=== PATIENT | male | born 1950 | race Caucasian/White ===

== ENCOUNTER 2018-06-15 06:51 | Observation (INO) | payer OTHER ==
[~2018-06-15] VITALS: Ht 180.3 cm; Wt 85.3 kg
[2018-06-15 07:28] LABS: HEMATOCRIT 48.8 % (42.0-52.0); HEMOGLOBIN 16.4 gm/dL (14.0-18.0); MCH 30.7 pg (26.0-34.0); MCHC 33.7 g/dL (28.0-37.0); MCV 91.3 fL (80.0-100.0); RBC 5.34 mil/uL (4.50-6.00); RDW 12.9 % (10.5-14.5); WBC 12.8 thou/uL (4.0-11.0)
[2018-06-15 07:34] LABS: CALCIUM 9.4 mg/dL (8.5-10.1); CREATININE 1.1 mg/dL (0.7-1.3); POTASSIUM 4.3 mmol/L (3.5-5.1)
[2018-06-15 07:42] VITALS: BP 173/78
[2018-06-15] MEDS ORDERED: ASPIR 8181 MG PO (08:00)
[2018-06-15] MEDS ORDERED: LIVALO4 MG PO (08:01)
--- NOTE | 2018-06-15 08:47 | EKG ---
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 : 1950 Requested By: El Escobar Order Number: [id number] MD: You Baxtre Measurements Intervals [place] Rate: 63 P: 54 RI: 187 QRS: -43 QRSD: 87 T: 33 QT: 421 QTc: 431 Interpretive Statements Sinus rhythm Left axis deviation No previous ECG available for comparison Electronically Signed On 06-15-2018 8:47:27 BOILERMAKER by You Baxter [email or web address] ��������������������������������������������� <ELECTRONICALLY SIGNED> ���������������������������������������� By: You Baxter MD, [facility] ��������������������������������������������� 06/15/18 0847 0718 7 You Baxter MD, FACC /EPI
[2018-06-15 10:50] VITALS: BP 143/78
[2018-06-15 11:25] VITALS: BP 138/74
--- NOTE | 2018-06-15 13:48 | NUR ---
RECIEVE REPORT FORM KARIE PALMER AT 1340.
--- NOTE | 2018-06-15 15:06 | NUR ---
ASSUMED CARE OF PT AT 1045 POST CATH. PT WAS A&OX4, BEDREST UNTIL 1330. PT BRADYCARDIC IN 50'S AND WAS ASYMPTOMATIC. RIGHT GROIN ACCESS WITH MYNX CLOSURE WAS C/D/I. PT HAS SPOUSE IN ROOM. NO HEMATOMA, NO BLEEDING AND CIRCULATION INTACT. AT 11:30 TRANSFERRED CARE TO ONCOMING NURSE MENDEZ.
[2018-06-15 15:17] VITALS: BP 125/66
[2018-06-15 19:27] VITALS: BP 157/85
[2018-06-16 00:11] VITALS: BP 141/79
--- NOTE | 2018-06-16 04:49 | NUR ---
ASSUMED PT CARE AT 1900 WITH BEDSIDE REPORT TAKEN. PT IS ALERT AND ORIENTED WITH NO SIGN OF DISTRESS NOTED IN PT. 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 PT IS STABLOE THROUGH OUT THE NIGHT.
[2018-06-16 05:11] LABS: HEMATOCRIT 44.6 % (42.0-52.0); HEMOGLOBIN 15.2 gm/dL (14.0-18.0); MCH 30.9 pg (26.0-34.0); MCV 90.9 fL (80.0-100.0); RBC 4.91 mil/uL (4.50-6.00); RDW 12.9 % (10.5-14.5); WBC 11.5 thou/uL (4.0-11.0)
[2018-06-16 05:19] VITALS: BP 145/80
[2018-06-16 05:27] LABS: ANION GAP 8 mmol/L (7-16); BUN 19 mg/dL (7-18); CHLORIDE 104 mmol/L (98-107); CO2 28 mmol/L (21-32); CREATININE 1.1 mg/dL (0.7-1.3); GLUCOSE 102 mg/dL (74-106); POTASSIUM 4.4 mmol/L (3.5-5.1); SODIUM 140 mmol/L (136-145); TROPONIN-I <0.06 ng/mL (<0.06)
[2018-06-16 07:10] VITALS: BP 139/76
[2018-06-16] MEDS ORDERED: ATORVASTATIN CA40 MG PO (07:56)
[2018-06-16] MEDS ORDERED: EFFIENT10 MG PO (07:56)
--- NOTE | 2018-06-16 08:42 | EKG ---
[place] [address] [employer] [facility] [place] [address] ELECTROCARDIOGRAM REPORT Name: TIMOTHY CONN Room #: 206-P [facility] M.R.#: [id number] ������������������ Admission: 06/15/18 ������������������ Attend Phys: El Escobar MD, Discharge: ������������������ Date of : 50 Report #: [id number] ����������������������������������������������������������������� [id number] THIS REPORT FOR: //name// [facility] Test Date: 2018-06-16 Test Time: 07:15:07 Pat Name: TIMOTHY CONN Department: Room: 206 P Gender: M Confidential Secretary: ALISON : 1950 Requested By: Cayla Duron Order Number: [id number] MD: You Baxter Measurements Intervals [place] Rate: 51 P: 49 WV: 196 QRS: -35 QRSD: 84 T: 37 QT: 449 QTc: 414 Interpretive Statements Sinus rhythm Left axis deviation Compared to ECG 06/15/2018 07:18:00 No significant changes Electronically Signed On 06-16-2018 8:42:26 MICROGRAPHICS SERVICES SUPERVISOR by You Baxter [email or web address] ��������������������������������������������� <ELECTRONICALLY SIGNED> ���������������������������������������� By: You Baxter MD, [facility] ��������������������������������������������� 06/16/18 0842 4 4 You Baxter MD, [facility] /EPI
[2018-06-16 09:16] VITALS: BP 139/76
--- NOTE | 2018-06-16 09:38 | NUR ---
PT CARE ASSUMED APPROX 0700. PT ALERT AND ORIENTED X4. DENIES PAIN AND SOA. VSS. RIGHT GROIN POST CATH SITE C/D/I. PT TO DISCHARGE AT THIS TIME. PAPERWORK REVIEWED WITH PT AND SPOUSE. BOTH DENY QUESTIONS OR CONCERNS REGARDING DISCHARGE MEDS, F/U APPTS, ACTIVITY RESTRICTIONS, POST CATH SITE CARE, DIET AND GENERAL POST HOSPITAL CARES. IV OUT, TELE BOX OFF. HOSPITAL STAFF TO ESCORT PT ZABRINA FLOOD.
--- NOTE | 2018-06-16 13:08 | CATHLAB ---
[facility] [place] [address] [place] [address] INVASIVE PROCEDURE REPORT Name: TIMOTHY OCNN Room #: 206-P [facility] M.R.#: [id number] ������������� Admission: 06/15/18 ������������� Attend Phys: El Escobar, Discharge: ��� 06/16/18 ������������� ��� Date of : 50 Date of Service: 06/16/18 1308 �� Report #: [id number] �������� ��������������������������������������������[id number] THIS REPORT FOR: //name// APPROVED REPORT Study performed: 06/15/2018 07:16:20 Patient Details Patient Status: Out-Patient Room #: The patient is a 67 year-old male Event Personnel El Escobar Nitro Man, Linda Phillips RN RN, Viola Garcia RN RN, Puja Rodriguez RTR, NICHOLAS Dorman, Sam Anderson Monitor, Jenn Armendariz RT(R)() Monitor Procedures Performed Left Heart Cath w/or w/o Coronaries [id number] [facility] Aortogram Abdominal Peripheral Angio 999234 LES Place w/wo Plasty Single RCA 312836 Indication Chest pain Procedure Narrative The Right Groin^ was infiltrated with 1% Lidocaine subcutaneous anesthesia. A PINNACLE 6FR Sheath #[id number] sheath was inserted into the RFA^. Coronary angiography was performed using coronary diagnostic catheters. The right coronary system was accessed and visualized with a JR4 catheter. The left coronary system was accessed and visualized with a JL4 catheter. The left ventricle was accessed and visualized with a PIGTAIL catheter. Left ventriculogram was performed in 30 degree projection. An aortogram of the abdominal aorta was performed. Closure device was deployed with a 6 Fr MYNXGRIP 6/7F #[id number]. The patient tolerated the procedure well and there were no complications associated with the procedure. There was no hematoma. Intraoperative Conscious Sedation Sedation start time: 8.24 Case end Time: 9.29 Fentanyl 25 mcg Versed 1.5 mg Fluoro Time: 9.19 minutes Dose: DAP 05067 cGycm2 1487 mGy [facility] [address] [place] [address] INVASIVE PROCEDURE REPORT Name: TIMOTHY CONN Room #: 206-P [facility] M.R.#: [id number] ������������� Admission: 06/15/18 ������������� Attend Phys: El Escobar, Discharge: ��� 06/16/18 ������������� ��� Date of : 50 Date of Service: 06/16/18 1308 �� Report #: [id number] �������� ��������������������������������������������[id number] Hemodynamics The aortic pressure is 154/72 mmHg with a mean of 87 mmHg. The left ventricular pressure is 175/5 mmHg with a mean of mmHg. The left ventricular end diastolic pressure is 23 mmHg. PCI Technique Lesion Percutaneous coronary intervention was performed on the mid right coronary artery. A VISTA 6FR JR 4 #[id number] Guide Catheter was used to engage the ostium. A Luge Wire .014 x 182CM #[id number] Interventional Guidewire was used to cross the lesion. BALLOON DILATION A Balloon catheter Sprinter OTW 2.5 x 12 #[id number] was inserted and inflated up to 8.00atm for 19seconds. Additional Inflation: 12.00atm for 13seconds. STENT DEPLOYMENT A drug-eluting stent RESOLUTE KO OTW 3.0 X 22 #[id number] was inserted and inflated up to 16.00atm for 27seconds. PCI Technique Lesion 2 Percutaneous Coronary Intervention was performed on the mistal right coronary artery. A VISTA 6FR JR 4 #[id number] Guide Catheter was used to engage the ostium. A Luge Wire .014 x 182CM #[id number] Interventional Guidewire was used to cross the lesion. Stent Deployment A drug-eluting stent RESOLUTE KO OTW 2.5 X 8 #[id number] was inserted and inflated up to 14.00atm for 14seconds. Conclusion #1 successful PTCA stent of the proximal RCA tandem lesions with the most proximal subtotaled placement of a 30 by 22 resolute Andrew drug-eluting stent postdilated 3.3 mm DEBI grade 3 flow #2 successful PTCA stent of a distal proximal to the bifurcation of the dominant right 90% lesion to 0% with placement of a 2.5 x 8 Ko drug-eluting stent postdilated 2.6 mm #3 left main large free of disease giving rise to LAD and circumflex #4 LAD extends around the apex with mild mid vessel lesion of 40-50% otherwise well-preserved #5 nondominant circumflex with mild disease #6 normal left jugular size and systolic function EF 60% #7 abdominal aorta performed due to iliac tortuosity no occlusive disease no aneurysm. Renal arteries are patent [facility] [address] [place] [address] INVASIVE PROCEDURE REPORT Name: TIMOTHY CONN Room #: 206-P [facility] M.R.#: [id number] ������������� Admission: 06/15/18 ������������� Attend Phys: El Escobar, Discharge: ��� 06/16/18 ������������� ��� Date of : 50 Date of Service: 06/16/18 1308 �� Report #: [id number] �������� ��������������������������������������������[id number] Recommendations and plan: Continue aggressive risk factor modification dual antiplatelet therapy times one year. CCU in stable condition. ��������������������������������������������� <ELECTRONICALLY SIGNED> ���������������������������������������� By: El Escobar MD, FACC ��������������������������������������������� 06/16/18 1308 1308 1308 El Escobar MD, FACC /INF
== END 2018-06-16 09:40 | disposition home or self-care (01) ==
LOC: CATH 06:51 → 2N 09:15 → CATH 10:57 → 2N 06-16 09:40
PROVIDERS: Nurse Practitioner Adult Health; ADMIT Internal Medicine Cardiovascular Disease
DX: I25.10 Atherosclerotic heart disease of native coronary artery without angina pectoris (principal); E78.5 Hyperlipidemia, unspecified; Z79.82 Long term (current) use of aspirin; Z79.899 Other long term (current) drug therapy; Z82.49 Family history of ischemic heart disease and other diseases of the circulatory system